=== PATIENT | female | born 1960 | race American Indian/Alaskan Native ===

== ENCOUNTER 2018-10-02 13:31 | Emergency (ER) | payer OTHER ==
[2018-10-02 13:42] VITALS: BP 150/87
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
--- NOTE | 2018-10-02 15:10 | XRay Report ---
CERVICAL SPINE, 3 views: History: Neck pain. Findings: The vertebral bodies, disk spaces, posterior elements and prevertebral soft tissues are unremarkable. The dens is intact. Mild degenerative disc disease is noted at C4-5 and C6-7. No acute fracture or malalignment is identified. Impression: 1. No evidence for acute injury to the cervical spine.
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
[2018-10-02] MEDS ORDERED: IBUPROFEN PO ONE (15:21)
[2018-10-02] MEDS ORDERED: ULTRAM PO ONE (15:21)
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
[2018-10-02] MEDS ORDERED: ROBAXIN PO ONE (16:23)
== END 2018-10-02 16:05 | disposition home or self-care (01) ==
LOC: ED 13:31
DX: S16.1XXA Strain of muscle, fascia and tendon at neck level, initial encounter (principal); S39.012A Strain of muscle, fascia and tendon of lower back, initial encounter; R07.89 Other chest pain; Z90.89 Acquired absence of other organs; I10 Essential (primary) hypertension; E11.9 Type 2 diabetes mellitus without complications; Z79.4 Long term (current) use of insulin; V49.49XA Driver injured in collision with other motor vehicles in traffic accident, initial encounter; Y93.89 Activity, other specified; Y92.410 Unspecified street and highway as the place of occurrence of the external cause; Y99.8 Other external cause status
CPT/HCPCS: 71046; 72040